=== PATIENT | male | born 1945 | race Caucasian/White ===

== ENCOUNTER 2020-09-21 19:24 | Emergency (ER) | payer BC, SELFPAY ==
--- NOTE | ~2020-09-21 | XR_ITS ---
XR wrist LT 2V DATE: 09/21/2020 19:51 INDICATION: Swelling and erythema of left wrist for one day. No injury. TECHNIQUE: AP and lateral views COMPARISON: None FINDINGS: There is joint space narrowing and spurring at the triscaphe joint consistent with osteoart hritic arthritis. There is mild osteophyte is at the first carpometacarpal joint. Minimal chondrocalcinosis of the wrist. No fracture or dislocation, periosteal reaction or bone destruction. IMPRESSION: Osteoarthritis Minimal chondrocalcinosis Reviewed, dictated and finalized at location A. [employer] EMPLOYEE
--- NOTE | 2020-09-21 19:27 | ED.GENADULT ---
HPI - General Adult General Chief complaint: Extremity Injury, Upper Stated complaint: sweling left arm Time Seen by Provider: 09/21/20 19:27 Source: patient Mode of arrival: ambulatory Limitations: no limitations History of Present Illness HPI narrative: 74-year-old male patient presents to the [facility] with complaints of left wrist pain that radiates to the elbow. Patient states that he has not had an injury to this that he is aware of. Patient states the pain did wake him up out of his sleep last night and he did take an Aleve this morning as well as put some Aspercreme on it this evening. Patient states that he thought it could be possibly some arthritis but states it is slightly swollen a little warm to the touch. Denies any history of carpal tunnel. 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 Related Data Home Medications Medication Instructions Recorded Confirmed aspirin 09/21/20 coenzyme Q10 [CoQ-10] 30 mg PO DAILY 09/21/20 09/21/20 famotidine 09/21/20 finasteride mg 09/21/20 fluticasone propionate [Flonase] 1 spray INTRANASAL BID 09/21/20 09/21/20 niacin [Niaspan Extended-Release] mg PO 09/21/20 psyllium husk [Metamucil] g PO 09/21/20 rosuvastatin mg 09/21/20 terazosin mg 09/21/20 Allergies Allergy/AdvReac Type Severity Reaction Status Date / Time No Known Allergies Allergy Unverified 12/23/16 15:05 Review of Systems Review of Systems: Narrative: CONSTITUTIONAL: Denies fever, chills, or sweats. EYES: Denies visual changes, redness, or discharge. ENT: Denies rhinorrhea, congestion, sore throat, or otalgia. CARDIOVASCULAR: Denies chest pain, palpitations, or edema. RESPIRATORY: Denies cough or dyspnea. GASTROINTESTINAL: Denies abdominal pain, nausea, vomiting, or diarrhea. GENITOURINARY: Denies dysuria or hematuria. SKIN: Denies rash or itching. MUSCULOSKELETAL: Denies back pain, joint pain, or myalgia. Positive left wrist pain NEUROLOGIC: Denies headache, numbness, or weakness. PSYCHIATRIC: Denies anxiety or depression. [facility] Past Medical History Medical History (Updated 09/21/20 @ 20:00 by THEO Schmid) Arthritis Hip and shoulder Colon polyps Enlarged prostate Hypercholesterolemia Ulcer Surgical History Surgical History (Updated 09/21/20 @ 19:28 by THEO Schmid) H/O inguinal hernia repair Hx of cholecystectomy Family History Family History Sibling Hypertension Patient's brother is in good health Father Family history of heart disease in male family member before age 55 No family history of diabetes mellitus Mother No family history of hypertension Social History Social History Smoking status: Never smoker Alcohol intake: never Comments At the time of my signature I agree with nursing past medical history, surgical, social, and family history. There is no relevant family history pertinent to the presenting complaint. Exam Narrative: Exam Narrative: GENERAL: Well-appearing, well-nourished, and in no acute distress. HEAD: Normocephalic, atraumatic. EYES: PERRLA and EOMI. ENT: Nares clear, no rhinorrhea or epistaxis. Mucous membranes moist. NECK: Supple. No lymphadenopathy CHEST: Clear to auscultation. No respiratory distress. HEART: Regular rate and rhythm. No murmur heard. Normal peripheral pulses. ABDOMEN: Soft, nontender, nondistended, normal active bowel sounds. EXTREMITIES: The L wrist is without obvious asymmetry or deformity when compared to the R wrist. No surface trauma, open wounds, or obvious deformity. Patient does have slight swelling noted to the left wrist as compared to the right wrist. Very slight warmth noted on palpation. No overlying erythema. No bony crepitus or focal area of TTP. No scaphoid fullness or tenderness to direct palpation or axial load. Norm
[2020-09-21 19:41] VITALS: BP 165/89; PULSE 96; RESP 16; TEMP 36.6; O2SAT 99
== END 2020-09-21 20:07 | disposition home or self-care (01) ==
PROVIDERS: Emergency Provider Nurse Practitioner Family; PCP Physician Assistant
DX: M19.032 Primary osteoarthritis, left wrist (principal); N40.0 Benign prostatic hyperplasia without lower urinary tract symptoms; E78.00 Pure hypercholesterolemia, unspecified; M16.10 Unilateral primary osteoarthritis, unspecified hip; M19.019 Primary osteoarthritis, unspecified shoulder
CPT/HCPCS: 73100; 99213; G0463

== ENCOUNTER 2020-10-22 18:40 | Emergency (ER) | payer BC, SELFPAY ==
--- NOTE | ~2020-10-22 | XR_ITS ---
EXAMINATION: XR chest 2V DATE: 10/22/2020 19:44 INDICATION: Shortness of breath TECHNIQUE: AP and lateral views of the chest are obtained. COMPARISON: 08/30/2004 FINDINGS: The lungs are free of acute opacities. There is no pleural effusion or pneumothorax. The ca rdiomediastinal silhouette is normal. There is mild thoracic spondylosis. IMPRESSION: 1. No acute cardiopulmonary abnormality. Reviewed, dictated and finalized at location A. T RAIL TRANSIT OPERATOR
[2020-10-22 18:45] VITALS: BP 107/60; PULSE 174; RESP 18; TEMP 36.8; O2SAT 97
[2020-10-22] MEDS: dilTIAZem HCl INJ 25 MG/5 ML VIAL (18:54)
[2020-10-22 19:16] VITALS: BP 113/71; PULSE 116; RESP 16; TEMP 36.5; O2SAT 98
--- NOTE | 2020-10-22 19:24 | ECG_ITS ---
Measurements Intervals [place] Rate: 159 P: TN: 0 QRS: -43 QRSD: 113 T: 90 QT: 279 QTc: 454 Interpretive Statements ATRIAL FIBRILLATION WITH RAPID VENTRICULAR RESPONSE LEFT AXIS DEVIATION INCOMPLETE LEFT BUNDLE BRANCH BLOCK BORDERLINE R WAVE PROGRESSION, ANTERIOR LEADS NONSPECIFIC ST & T-WAVE ABNORMALITY- HIGH LATERAL LEADS ABNORMAL ECG Electronically Signed On 10-22-2020 19:57:47 PROGRAM ASSISTANT by Terence Santos D.O.
--- NOTE | 2020-10-22 19:34 | ED.ARRPALP ---
HPI - Arrhythmia/Palpitations General Chief Complaint: Arrhythmia/Palpitations Stated Complaint: afib with rvr Time Seen by Provider: 10/22/20 18:42 History of Present Illness HPI narrative: Patient is a 74-year-old male who presents ER with rapid heart rate. Patient reports he was giving his dog's water at 5:30 PM when he felt his heart start racing. Is associated with some weakness and some chest tightness. No overt chest pain however chest tightness improved from an 8/10 to a 4/10 after receiving 1 dose of nitro by EMS. No previous history of A. fib or coronary disease. Symptoms persist. No alleviating factors for the racing of the heart. Reports he may be dehydrated from not having much to eat or drink today. He had been working outside getting ready to garden for the spring. Related Data Home Medications Medication Instructions Recorded Confirmed aspirin 09/21/20 coenzyme Q10 [CoQ-10] 30 mg PO DAILY 09/21/20 09/21/20 famotidine 09/21/20 finasteride mg 09/21/20 fluticasone propionate [Flonase] 1 spray INTRANASAL BID 09/21/20 09/21/20 niacin [Niaspan Extended-Release] mg PO 09/21/20 psyllium husk [Metamucil] g PO 09/21/20 rosuvastatin mg 09/21/20 terazosin mg 09/21/20 Allergies Allergy/AdvReac Type Severity Reaction Status Date / Time No Known Allergies Allergy Unverified 12/23/16 15:05 Review of Systems Review of Systems: All systems reviewed & are unremarkable except as noted in HPI and below Constitutional: Constitutional: Denies chills, Denies fever(s) and Reports weakness Cardiovascular: Cardiovascular: Reports chest pain, Reports rapid heart rate and Denies radiating jaw, neck or arm pain Respiratory: Respiratory: Denies cough, Denies dyspnea and Denies wheezing Gastrointestinal: Gastrointestinal: Denies abdominal pain, Denies nausea and Denies vomiting PMF Past Medical History Medical History (Updated 10/22/20 @ 21:23 by Leland Bess MD) Arthritis Hip and shoulder Colon polyps Enlarged prostate Hypercholesterolemia Ulcer Surgical History Surgical History (Updated 09/21/20 @ 19:28 by THEO Schmid) H/O inguinal hernia repair Hx of cholecystectomy Family History Family History Sibling Hypertension Patient's brother is in good health Father Family history of heart disease in male family member before age 55 No family history of diabetes mellitus Mother No family history of hypertension Social History Social History Smoking status: Never smoker Alcohol intake: never Exam Narrative: Exam Narrative: GENERAL: Well-appearing, well-nourished, and in no acute distress. HEAD: Normocephalic, atraumatic. ENT: Mucous membranes moist. CHEST: Clear to auscultation. No respiratory distress. HEART: Irregular regular rate and rhythm that is tachycardic. Normal peripheral pulses. ABDOMEN: Soft, nontender, nondistended. EXTREMITIES: Normal range of motion. No edema. SKIN: Warm, dry, no rash. Course Course Emergency Course: Patient converted to normal sinus rhythm after receiving 10 mg of diltiazem IV. Patient informed of results. Discussed case with cardiology and Dr. Enamorado. Recommends patient be placed on metoprolol 25 mg twice daily beginning tomorrow morning. Also recommends full dose aspirin. Patient ports he has history of gastric ulceration so he will also be placed on a PPI to replace his famotidine. Vital Signs Vital signs: Vital Signs Temperature 98.2 F 10/22/20 18:45 Pulse Rate 174 H 10/22/20 18:45 Respiratory Rate 18 10/22/20 18:45 Blood Pressure 107/60 10/22/20 18:45 Pulse Oximetry 97 10/22/20 18:45 Temperature 97.7 F 10/22/20 19:16 Pulse Rate 64 10/22/20 21:17 Respiratory Rate 14 10/22/20 21:17 Blood Pressure 124/64 10/22/20 21:17 Pulse Oximetry 98 10/22/20 21:17 MDM - Arrhythmia/Palpita
--- NOTE | 2020-10-22 19:44 | ECG_ITS ---
Measurements Intervals [place] Rate: 82 P: 16 MO: 140 QRS: 104 QRSD: 121 T: 33 QT: 366 QTc: 430 Interpretive Statements SINUS RHYTHM RIGHT AXIS DEVIATION INTRAVENTRICULAR CONDUCTION DELAY DELAYED PRECORDIAL R/S TRANSITION BORDERLINE ECG Electronically Signed On 10-22-2020 19:59:14 ACCOUNTING SPECIALIST by Terence Santos D.O.
[2020-10-22 20:00] VITALS: BP 115/56; PULSE 77
[2020-10-22] MEDS: SODIUM CHLORIDE 0.9% IV 1,000 ML 999 ML IV CONT (20:00)
[2020-10-22 20:04] LABS: Basophils Percent Auto 0.5 % (0.2-1.2); Eosinophils Percent Auto 0.4 % (0-4.4); Hemoglobin 13.8 g/dL (14.0-18.0); Immature Granulocyte Absolute 0.03 K/mm3 (0.00-0.031); Immature Granulocyte Percent A 0.4 % (0-0.5); Lymphocytes Absolute Auto 1.94 K/mm3 (0.9-3.2); Lymphocytes Percent Auto 24.9 % (18.3-44.2); Mean Corpuscular HGB Conc 34.5 g/dl (32-36); Mean Corpuscular Hemoglobin 31.6 pg (26-34); Mean Corpuscular Volume 91.5 fl (80-100); Mean Platelet Volume 9.3 fl (7.4-10.4); Monocytes Absolute Auto 0.8 K/mm3 (0.1-0.6); Monocytes Percent Auto 10.4 % (2.6-8.5); Neutrophils Percent Auto 63.4 % (45.5-73.1); Platelet Count Result 170 k/mm3 (150-375); Red Blood Count 4.37 M/mm3 (4.6-6.20); Red Cell Distribution Width 13.2 % (11.5-14.5); White Blood Count 7.8 K/mm3 (4.5-10.0)
[2020-10-22 20:11] VITALS: BP 122/80; PULSE 72; RESP 18; O2SAT 100
[2020-10-22 20:14] LABS: Partial Thromboplastin Time 26.3 SECONDS (22.3-36.8); Prothrombin Time 13.6 Seconds (11.1-14.7)
[2020-10-22 20:15] LABS: Anion Gap 2 mmol/L (8-16); Blood Urea Nitrogen 17 mg/dL (9-20); Calcium 9.1 mg/dL (8.4-10.2); Carbon Dioxide 32 mmol/L (22-30); Chloride 105 mmol/L (98-107); Estimated Glomerular Filt Rate > 60; Glucose 97 mg/dL (75-110); Potassium 3.8 mmol/L (3.4-5.0); Sodium 139 mmol/L (137-145)
[2020-10-22 20:27] LABS: Troponin I < 0.012 ng/mL (0.000-0.034)
[2020-10-22 21:17] VITALS: BP 124/64; PULSE 64; RESP 14; O2SAT 98
[2020-10-22 21:30] VITALS: BP 133/73; PULSE 59; RESP 16; O2SAT 99
== END 2020-10-22 21:30 | disposition home or self-care (01) ==
PROVIDERS: Emergency Provider Emergency Medicine; PCP Physician Assistant
DX: I48.0 Paroxysmal atrial fibrillation (principal); M16.10 Unilateral primary osteoarthritis, unspecified hip; M19.019 Primary osteoarthritis, unspecified shoulder; Z86.010 Personal history of colon polyps; E78.00 Pure hypercholesterolemia, unspecified; N40.0 Benign prostatic hyperplasia without lower urinary tract symptoms; Z79.82 Long term (current) use of aspirin; I48.91 Unspecified atrial fibrillation; I44.7 Left bundle-branch block, unspecified; R94.31 Abnormal electrocardiogram [ECG] [EKG]; I45.9 Conduction disorder, unspecified
CPT/HCPCS: 36415; 71046; 80048; 84484; 85025; 85610; 85730; 93005; 96361; 96374; 99284; J7030

== ENCOUNTER 2022-06-01 00:15 | Day surgery (SDC) | payer OTHER, SELFPAY ==
[2022-05-21 11:02] VITALS: BMI 29.2
[2022-06-01 09:37] VITALS: BP 157/58; PULSE 63; RESP 18; TEMP 36.1; O2SAT 96; BMI 28.6
[2022-06-01] MEDS: LACTATED RINGERS 1,000 ML 150 ML IV CONT (09:57)
--- NOTE | 2022-06-01 10:14 | PM.HPGS ---
History of Present Illness History of Present Illness Consent: Risks, benefits, and alternatives have been discussed and questions answered. Patient agrees to proceed with procedure. Chief complaint: hx colon polyps Narrative: Pedro Garcia is a 76 year old male Presents for screening colonoscopy. Patient's current weight appetite and bowel movements are normal. Patient denies abdominal pain. he has had no bleeding. Family history noncontributory. Patient has a prior history of colon polyps in 2017. He presents today for screening colonoscopy. Review of Systems Review of Systems: Review of systems noncontributory. [facility] Past Medical History Medical History (Updated 06/01/22 @ 10:16 by Inocente Ornelas MD) Arthritis Hip and shoulder Colon polyps Enlarged prostate Hypercholesterolemia Ulcer Surgical History Surgical History (Updated 09/21/20 @ 19:28 by THEO Schmid) H/O inguinal hernia repair Hx of cholecystectomy Family History Family History Sibling Hypertension Patient's brother is in good health Father Family history of heart disease in male family member before age 55 No family history of diabetes mellitus Mother No family history of hypertension Social History Social History Smoking status: Former smoker Tobacco type: cigarettes Alcohol intake: never Substance use type: does not use Living arrangements: with family Spiritual care concerns: No Meds Home Medications and Allergies Home Medications Medication Instructions Recorded Confirmed Type acetaminophen 325 mg tablet 650 mg PO Q6H PRN pain 10 days #40 09/21/20 06/01/22 Rx tabs coenzyme Q10 30 mg capsule (CoQ-10) 30 mg PO DAILY 09/21/20 06/01/22 History famotidine 10 mg tablet 10 mg PO DAILY 09/21/20 06/01/22 History finasteride 5 mg tablet 5 mg PO DAILY 09/21/20 06/01/22 History fluticasone propionate 50 1 spray intranasal BID PRN Allergy 09/21/20 06/01/22 History mcg/actuation nasal Symptoms spray,suspension psyllium husk 0.4 gram capsule 0.4 g PO DAILY 09/21/20 06/01/22 History (Metamucil) terazosin 2 mg capsule 2 mg PO DAILY 09/21/20 06/01/22 History metoprolol tartrate 25 mg tablet 25 mg PO BID #60 tabs 10/22/20 06/01/22 Rx omeprazole 20 mg tablet,delayed 20 mg PO DAILY 05/21/22 06/01/22 History release rivaroxaban 20 mg tablet (Xarelto) 20 mg PO DAILY 05/21/22 06/01/22 History rosuvastatin 20 mg tablet 20 mg PO DAILY 05/21/22 06/01/22 History Allergies Allergy/AdvReac Type Severity Reaction Status Date / Time No Known Allergies Allergy Verified 06/01/22 09:44 Vital Signs Vital Signs - 24 hr 06/01/22 09:37 Temperature 96.9 F L Pulse Rate 63 Respiratory Rate 18 Blood Pressure 157/58 H Pulse Oximetry 96 Oxygen Delivery Room Air Exam Narrative: Physical exam reveals patient to be alert. Vital signs stable. HEENT exam is unremarkable. Patient is anicteric. Lungs are clear to auscultation and percussion. Heart is without murmur or extra sounds. Abdominal exam bowel sounds are present soft nontender with no organomegaly. Digital external rectal exam is normal. Assessment and Plan Assessment and plan (1) History of colon polyps: Code(s): Z86.010 - Personal history of colonic polyps Status: Acute Assessment and Plan: Patient has a history of colon polyps removed from the colon 2016. Plan for surveillance colonoscopy today. Further recommendations will be given after endoscopy.
--- NOTE | 2022-06-01 10:33 | WPDANESEPPF ---
Anes - Initial Pre Proc Eval Procedure: Operation Date: 06/01/22 10:45 Proposed Procedures p Screening Colonoscopy - Inocente Ornelas MD Date/Time: 06/01/22 10:33 Surgeon: Inocente Ornelas MD Pre Op Diagnosis: hx colon polyps Patient Data Age: 76 Gender: M Height: 1.83 m Weight: 95.9 kg Last Vital Signs Temp 96.9 F L 06/01/22 09:37 Pulse 63 06/01/22 09:37 Resp 18 06/01/22 09:37 BP 157/58 H 06/01/22 09:37 Pulse Ox 96 06/01/22 09:37 O2 Del Method Room Air 06/01/22 09:37 Allergies Allergy/AdvReac Type Severity Reaction Status Date / Time No Known Allergies Allergy Verified 06/01/22 09:44 Home Medications Medication Instructions Recorded Confirmed Type acetaminophen 325 mg tablet 650 mg PO Q6H PRN pain 10 days #40 09/21/20 06/01/22 Rx tabs coenzyme Q10 30 mg capsule (CoQ-10) 30 mg PO DAILY 09/21/20 06/01/22 History famotidine 10 mg tablet 10 mg PO DAILY 09/21/20 06/01/22 History finasteride 5 mg tablet 5 mg PO DAILY 09/21/20 06/01/22 History fluticasone propionate 50 1 spray intranasal BID PRN Allergy 09/21/20 06/01/22 History mcg/actuation nasal Symptoms spray,suspension psyllium husk 0.4 gram capsule 0.4 g PO DAILY 09/21/20 06/01/22 History (Metamucil) terazosin 2 mg capsule 2 mg PO DAILY 09/21/20 06/01/22 History metoprolol tartrate 25 mg tablet 25 mg PO BID #60 tabs 10/22/20 06/01/22 Rx omeprazole 20 mg tablet,delayed 20 mg PO DAILY 05/21/22 06/01/22 History release rivaroxaban 20 mg tablet (Xarelto) 20 mg PO DAILY 05/21/22 06/01/22 History rosuvastatin 20 mg tablet 20 mg PO DAILY 05/21/22 06/01/22 History Patient hx anesthesia problems: none Family hx anesthesia problems: none Results Review: All pre-operative results and documents have been reviewed as part of the pre-operative evaluation. [facility] Past Medical History Medical History (Updated 06/01/22 @ 10:16 by Inocente Ornelas MD) Arthritis Hip and shoulder Colon polyps Enlarged prostate Hypercholesterolemia Ulcer Surgical History Surgical History (Updated 09/21/20 @ 19:28 by THEO Schmid) H/O inguinal hernia repair Hx of cholecystectomy Family History Family History Sibling Hypertension Patient's brother is in good health Father Family history of heart disease in male family member before age 55 No family history of diabetes mellitus Mother No family history of hypertension Social History Social History Smoking status: Former smoker Tobacco type: cigarettes Alcohol intake: never Substance use type: does not use Living arrangements: with family Spiritual care concerns: No Anes - Eval Final PreProcedure Day of Procedure 06/01/22 10:33 Patient weight: normal Heart: irregular rhythm Lungs: clear to auscultation Airway: Mallampati scale class II Neurological: alert and oriented Last oral intake: >/= 8 hours ASA classification: III Emergent: no Anesthetic plan: proceed Anesthesia type and monitoring: general GIVS and standard monitoring Results Review: All pre-operative results and documents have been reviewed as part of the pre-operative evaluation. Informed Consent: The patient's anesthetic plan and its attendant risks and benefits were discussed with the patient/family/POA. Questions were solicited and answers provided to the satisfaction of the patient/family/POA.
[2022-06-01] MEDS: SIMETHICONE ORAL SUSPENSION 20 MG/0.3 ML 30 ML BOTTLE 0.6 ML IRRIGATION (11:20)
[2022-06-01 11:46] VITALS: BP 131/71; PULSE 63; RESP 24; O2SAT 94
[2022-06-01 11:56] VITALS: BP 129/68; PULSE 55; RESP 16; O2SAT 97
[2022-06-01 12:06] VITALS: BP 130/65; PULSE 52; RESP 16; O2SAT 97
== END 2022-06-01 12:20 | disposition home or self-care (01) ==
PROVIDERS: PCP Physician Assistant; Visit Provider Internal Medicine Gastroenterology
PROC: 0DJD8ZZ Inspection of Lower Intestinal Tract, Via Natural or Artificial Opening Endoscopic (ICD-10-PCS; CPT 45378; principal; 2022-06-01 10:45)
DX: Z12.11 Encounter for screening for malignant neoplasm of colon (principal); D12.2 Benign neoplasm of ascending colon; D37.4 Neoplasm of uncertain behavior of colon; K63.5 Polyp of colon; Z79.01 Long term (current) use of anticoagulants; Z79.899 Other long term (current) drug therapy; M19.90 Unspecified osteoarthritis, unspecified site; N40.0 Benign prostatic hyperplasia without lower urinary tract symptoms; E78.00 Pure hypercholesterolemia, unspecified; Z90.49 Acquired absence of other specified parts of digestive tract; Z87.891 Personal history of nicotine dependence
CPT/HCPCS: 45385; 45381; 88305; J2001; J2704; J7120

== ENCOUNTER 2022-10-01 00:37 | Day surgery (SDC) | payer OTHER, SELFPAY ==
[2022-09-21 09:54] VITALS: BMI 28.6
[2022-10-01 08:39] VITALS: BP 123/85; PULSE 50; RESP 18; TEMP 36.6; O2SAT 97
[2022-10-01] MEDS: LACTATED RINGERS 1,000 ML 150 ML IV CONT (08:45)
--- NOTE | 2022-10-01 08:50 | WPDANESEPPF ---
Anes - Initial Pre Proc Eval Procedure: Operation Date: 10/01/22 09:30 Proposed Procedures p Screening Colonoscopy - Inocente Ornelas MD Date/Time: 10/01/22 08:50 Surgeon: Inocente Ornelas MD Pre Op Diagnosis: hx colon polyps Patient Data Age: 76 Gender: M Height: 1.83 m Weight: 97.9 kg Last Vital Signs Temp 36.6 C 10/01/22 08:39 Pulse 50 L 10/01/22 08:39 Resp 18 10/01/22 08:39 BP 123/85 10/01/22 08:39 Pulse Ox 97 10/01/22 08:39 O2 Del Method Room Air 10/01/22 08:39 Allergies Allergy/AdvReac Type Severity Reaction Status Date / Time No Known Allergies Allergy Verified 10/01/22 08:37 Home Medications Medication Instructions Recorded Confirmed Type acetaminophen 325 mg tablet 650 mg PO Q6H PRN pain 10 days #40 09/21/20 09/21/22 Rx tabs famotidine 10 mg tablet 20 mg PO DAILY 09/21/20 09/21/22 History finasteride 5 mg tablet 5 mg PO DAILY 09/21/20 09/21/22 History fluticasone propionate 50 1 spray intranasal BID PRN Allergy 09/21/20 09/21/22 History mcg/actuation nasal Symptoms spray,suspension terazosin 2 mg capsule 2 mg PO DAILY 09/21/20 09/21/22 History omeprazole 20 mg tablet,delayed 20 mg PO DAILY 05/21/22 09/21/22 History release rivaroxaban 20 mg tablet (Xarelto) 20 mg PO DAILY 05/21/22 09/21/22 History rosuvastatin 20 mg tablet 20 mg PO DAILY 05/21/22 09/21/22 History Adults Multivitamin 1 tab-cap PO DAILY 09/21/22 09/21/22 History Calcium 600-D3 Plus (mag-zinc) 3 cap PO DAILY 09/21/22 09/21/22 History cholecalciferol (vitamin D3) 50 100 mcg PO DAILY 09/21/22 09/21/22 History mcg (2,000 unit) tablet (Vitamin D3) coQ10 (ubiquinol) 100 mg capsule 100 mg PO DAILY 09/21/22 09/21/22 History loratadine 10 mg tablet 10 mg PO DAILY 09/21/22 09/21/22 History metoprolol succinate 25 mg 25 mg PO DAILY 09/21/22 09/21/22 History tablet,extended release 24 hr psyllium 1 tbsp PO DAILY 09/21/22 09/21/22 History Patient hx anesthesia problems: none Family hx anesthesia problems: none Results Review: All pre-operative results and documents have been reviewed as part of the pre-operative evaluation. PMFSH Past Medical History Medical History Afib Arthritis Hip and shoulder Colon polyps Enlarged prostate Hypercholesterolemia Ulcer Surgical History Surgical History H/O inguinal hernia repair Hx of cholecystectomy Family History Family History Sibling Hypertension Patient's brother is in good health Father Family history of heart disease in male family member before age 55 No family history of diabetes mellitus Mother No family history of hypertension Social History Social History Smoking status: Former smoker Tobacco type: cigarettes Alcohol intake: never Substance use: never Substance use type: does not use Living arrangements: with family Spiritual care concerns: No Anes - Eval Final PreProcedure Day of Procedure 10/01/22 08:50 Patient weight: overweight Heart: regular rate and rhythm Lungs: decreased breath sounds Airway: Mallampati scale class II Neurological: alert and oriented Last oral intake: >/= 8 hours ASA classification: III Emergent: no Anesthetic plan: proceed Anesthesia type and monitoring: general GIVS and standard monitoring Results Review: All pre-operative results and documents have been reviewed as part of the pre-operative evaluation. Informed Consent: The patient's anesthetic plan and its attendant risks and benefits were discussed with the patient/family/POA. Questions were solicited and answers provided to the satisfaction of the patient/family/POA.
--- NOTE | 2022-10-01 09:21 | PM.HPGS ---
History of Present Illness History of Present Illness Consent: Risks, benefits, and alternatives have been discussed and questions answered. Patient agrees to proceed with procedure. Chief complaint: hx colon polyps Narrative: Pedro Garcia is a 76 year old male Presents for screening follow-up colonoscopy. Patient was found to have a rather large ascending colon polyp in May of 2022. Onlyl partial polypectomy was able to be accomplished. Patient returns today for follow-up colonoscopy. He states his current weight appetite bowel movements are normal. Patient denies abdominal pain. He has had no bleeding. Patient has had polyps on previous colonoscopies as well. Review of Systems Review of Systems: Review of systems is noncontributory. PMFSH Past Medical History Medical History Afib Arthritis Hip and shoulder Colon polyps Enlarged prostate Hypercholesterolemia Ulcer Surgical History Surgical History H/O inguinal hernia repair Hx of cholecystectomy Family History Family History Sibling Hypertension Patient's brother is in good health Father Family history of heart disease in male family member before age 55 No family history of diabetes mellitus Mother No family history of hypertension Social History Social History Smoking status: Former smoker Tobacco type: cigarettes Alcohol intake: never Substance use: never Substance use type: does not use Living arrangements: with family Spiritual care concerns: No Meds Home Medications and Allergies Home Medications Medication Instructions Recorded Confirmed Type acetaminophen 325 mg tablet 650 mg PO Q6H PRN pain 10 days #40 09/21/20 09/21/22 Rx tabs famotidine 10 mg tablet 20 mg PO DAILY 09/21/20 09/21/22 History finasteride 5 mg tablet 5 mg PO DAILY 09/21/20 09/21/22 History fluticasone propionate 50 1 spray intranasal BID PRN Allergy 09/21/20 09/21/22 History mcg/actuation nasal Symptoms spray,suspension terazosin 2 mg capsule 2 mg PO DAILY 09/21/20 09/21/22 History omeprazole 20 mg tablet,delayed 20 mg PO DAILY 05/21/22 09/21/22 History release rivaroxaban 20 mg tablet (Xarelto) 20 mg PO DAILY 05/21/22 09/21/22 History rosuvastatin 20 mg tablet 20 mg PO DAILY 05/21/22 09/21/22 History Adults Multivitamin 1 tab-cap PO DAILY 09/21/22 09/21/22 History Calcium 600-D3 Plus (mag-zinc) 3 cap PO DAILY 09/21/22 09/21/22 History cholecalciferol (vitamin D3) 50 100 mcg PO DAILY 09/21/22 09/21/22 History mcg (2,000 unit) tablet (Vitamin D3) coQ10 (ubiquinol) 100 mg capsule 100 mg PO DAILY 09/21/22 09/21/22 History loratadine 10 mg tablet 10 mg PO DAILY 09/21/22 09/21/22 History metoprolol succinate 25 mg 25 mg PO DAILY 09/21/22 09/21/22 History tablet,extended release 24 hr psyllium 1 tbsp PO DAILY 09/21/22 09/21/22 History Allergies Allergy/AdvReac Type Severity Reaction Status Date / Time No Known Allergies Allergy Verified 10/01/22 08:37 Vital Signs Vital Signs - 24 hr 10/01/22 08:39 Temperature 97.8 F Pulse Rate 50 L Respiratory Rate 18 Blood Pressure 123/85 Pulse Oximetry 97 Oxygen Delivery Room Air Exam Narrative: Physical exam reveals patient be alert. Vital signs stable. HEENT exam is unremarkable. Patient is anicteric. Lungs are clear to auscultation and percussion. Heart is without murmur or extra sounds. Abdomen bowel sounds present soft nontender with no organomegaly. Digital external rectal exam is normal. Assessment and Plan Assessment and plan (1) History of colon polyps: Code(s): Z86.010 - Personal history of colonic polyps Status: Acute Assessment and Plan: Patient has a history of colon polyps on previous colo
[2022-10-01 10:31] VITALS: BP 131/64; PULSE 55; RESP 15; O2SAT 95
[2022-10-01 10:41] VITALS: BP 132/63; PULSE 52; RESP 17; O2SAT 99
[2022-10-01 10:51] VITALS: BP 127/65; PULSE 49; RESP 15; O2SAT 97
== END 2022-10-01 11:06 | disposition home or self-care (01) ==
PROVIDERS: PCP Physician Assistant; Visit Provider Internal Medicine Gastroenterology
PROC: 0DJD8ZZ Inspection of Lower Intestinal Tract, Via Natural or Artificial Opening Endoscopic (ICD-10-PCS; CPT 45378; principal; 2022-10-01 09:30)
DX: Z12.11 Encounter for screening for malignant neoplasm of colon (principal); D12.2 Benign neoplasm of ascending colon; Z79.01 Long term (current) use of anticoagulants; I48.91 Unspecified atrial fibrillation; N40.0 Benign prostatic hyperplasia without lower urinary tract symptoms; E78.00 Pure hypercholesterolemia, unspecified; Z87.891 Personal history of nicotine dependence
CPT/HCPCS: 45385; 88305; J2704; J7120

== ENCOUNTER 2023-05-26 15:11 | Outpatient (CLI) | payer OTHER, SELFPAY ==
--- NOTE | ~2023-05-26 | XR_ITS ---
XR wrist LT min 3V DATE: 05/26/2023 15:32 INDICATION: Left wrist swelling TECHNIQUE: 4 views COMPARISON: 09/21/2020 left wrist FINDINGS: There is osteoarthritis at the triscaphe and first carpometacarpal joints in addition to th e third metacarpophalangeal joint. No fracture or dislocation, periosteal reaction or bone destruction. Minimal chondrocalcinosis at the left wrist. IMPRESSION: Polyarticular osteoarthritis Minimal chondrocalcinosis Reviewed, dictated and finalized at location L.
== END 2023-05-26 15:12 | disposition home or self-care (01) ==
PROVIDERS: PCP Physician Assistant; Visit Provider Physician Assistant
DX: M25.432 Effusion, left wrist (principal); M19.032 Primary osteoarthritis, left wrist
CPT/HCPCS: 73110

== ENCOUNTER 2023-06-10 00:34 | Day surgery (SDC) | payer OTHER, SELFPAY ==
[2023-06-03 11:58] VITALS: BMI 28.3
[2023-06-10 10:04] VITALS: BP 148/63; PULSE 84; RESP 20; TEMP 37; O2SAT 99; BMI 27.5
[2023-06-10] MEDS: LACTATED RINGERS 1,000 ML 150 ML IV CONT (10:17)
--- NOTE | 2023-06-10 10:38 | WPDANESEPPF ---
Anes - Initial Pre Proc Eval Procedure: Operation Date: 06/10/23 11:00 Proposed Procedures p Colonoscopy - Inocente Ornelas MD Date/Time: 06/10/23 10:38 Surgeon: Inocente Ornelas MD Pre Op Diagnosis: hx of colon polyps Patient Data Age: 77 Gender: M Height: 1.85 m Weight: 94.7 kg Last Vital Signs Temp 98.6 F 06/10/23 10:04 Pulse 84 06/10/23 10:04 Resp 20 06/10/23 10:04 BP 148/63 H 06/10/23 10:04 Pulse Ox 99 06/10/23 10:04 O2 Del Method Room Air 06/10/23 10:04 Allergies Allergy/AdvReac Type Severity Reaction Status Date / Time No Known Allergies Allergy Verified 06/10/23 10:00 Home Medications Medication Instructions Recorded Confirmed Type acetaminophen 325 mg tablet 650 mg PO Q6H PRN pain 10 days #40 09/21/20 06/03/23 Rx tabs finasteride 5 mg tablet 5 mg PO HS 09/21/20 06/03/23 History fluticasone propionate 50 1 spray intranasal DAILY PRN 09/21/20 06/03/23 History mcg/actuation nasal Allergy Symptoms spray,suspension terazosin 2 mg capsule 2 mg PO DAILY 09/21/20 06/03/23 History omeprazole 20 mg tablet,delayed 20 mg PO HS 05/21/22 06/03/23 History release rivaroxaban 20 mg tablet (Xarelto) 20 mg PO DAILY 05/21/22 06/03/23 History rosuvastatin 20 mg tablet 20 mg PO HS 05/21/22 06/03/23 History Adults Multivitamin 1 tab-cap PO DAILY 09/21/22 06/03/23 History Calcium 600-D3 Plus (mag-zinc) 1 cap PO QAM 09/21/22 06/03/23 History cholecalciferol (vitamin D3) 50 100 mcg PO DAILY 09/21/22 06/03/23 History mcg (2,000 unit) tablet (Vitamin D3) coQ10 (ubiquinol) 100 mg capsule 100 mg PO DAILY 09/21/22 06/03/23 History loratadine 10 mg tablet 10 mg PO HS 09/21/22 06/03/23 History metoprolol succinate 25 mg 25 mg PO DAILY 09/21/22 06/03/23 History tablet,extended release 24 hr psyllium 1 tbsp PO DAILY 09/21/22 06/03/23 History colchicine (gout) 0.6 mg tablet 0.6 mg PO BID 06/03/23 06/03/23 History cyclobenzaprine 5 mg tablet 5 mg PO HS PRN Muscle Spasm 06/03/23 06/03/23 History famotidine 20 mg tablet 20 mg PO DAILY 06/03/23 06/03/23 History Patient hx anesthesia problems: none Family hx anesthesia problems: none Results Review: All pre-operative results and documents have been reviewed as part of the pre-operative evaluation. [facility] Past Medical History Medical History Afib Arthritis Hip and shoulder Colon polyps Enlarged prostate Hypercholesterolemia Ulcer Surgical History Surgical History H/O inguinal hernia repair Hx of cholecystectomy Family History Family History Sibling Hypertension Patient's brother is in good health Father Family history of heart disease in male family member before age 55 No family history of diabetes mellitus Mother No family history of hypertension Social History Social History Smoking packs per day: 1 Smoking cigarettes per day: 20.0 Years smoked: 16 Smoking pack-years: 16.00 Smoking status: Former smoker Tobacco type: cigarettes Alcohol intake: former Substance use: never Substance use type: does not use Living arrangements: with family Spiritual care concerns: No Anes - Eval Final PreProcedure Day of Procedure 06/10/23 10:38 Patient weight: normal Heart: regular rate and rhythm Lungs: clear to auscultation Airway: Mallampati scale class II Neurological: alert and oriented Last oral intake: >/= 8 hours ASA classification: III Emergent: no Anesthetic plan: proceed Anesthesia type and monitoring: general GIVS and standard monitoring Results Review: All pre-operative results and documents have been reviewed as part of the pre-operative evaluation. Informed Consent: The patient's anesthetic plan and its attendant risks and benefits were discuss
--- NOTE | 2023-06-10 10:46 | PM.HPGS ---
History of Present Illness History of Present Illness Consent: Risks, benefits, and alternatives have been discussed and questions answered. Patient agrees to proceed with procedure. Chief complaint: hx of colon polyps Narrative: Pedro Garcia is a 77 year old male Presents for colonoscopy. Patient has a history of a rather large ascending colon polyp. Patient presents today for follow-up colonoscopy to ensure complete excision of this polyp. Most recent colonoscopy in September of 2022 revealed residual ascending colon polyp that was excised. Required piecemeal extraction at that time. Histology of retrieve portion was benign. Patient presents today for follow-up exam. Current weight appetite bowel movements are normal. Patient denies abdominal pain. He has had no bleeding. Family history noncontributory. Patient does have a history of gout and has had a flare-up in his left hand. Review of Systems Review of Systems: Review of Systems is noncontributory. [facility] Past Medical History Medical History Afib Arthritis Hip and shoulder Colon polyps Enlarged prostate Hypercholesterolemia Ulcer Surgical History Surgical History H/O inguinal hernia repair Hx of cholecystectomy Family History Family History Sibling Hypertension Patient's brother is in good health Father Family history of heart disease in male family member before age 55 No family history of diabetes mellitus Mother No family history of hypertension Social History Social History Smoking packs per day: 1 Smoking cigarettes per day: 20.0 Years smoked: 16 Smoking pack-years: 16.00 Smoking status: Former smoker Tobacco type: cigarettes Alcohol intake: former Substance use: never Substance use type: does not use Living arrangements: with family Spiritual care concerns: No Meds Home Medications and Allergies Home Medications Medication Instructions Recorded Confirmed Type acetaminophen 325 mg tablet 650 mg PO Q6H PRN pain 10 days #40 09/21/20 06/03/23 Rx tabs finasteride 5 mg tablet 5 mg PO HS 09/21/20 06/03/23 History fluticasone propionate 50 1 spray intranasal DAILY PRN 09/21/20 06/03/23 History mcg/actuation nasal Allergy Symptoms spray,suspension terazosin 2 mg capsule 2 mg PO DAILY 09/21/20 06/03/23 History omeprazole 20 mg tablet,delayed 20 mg PO HS 05/21/22 06/03/23 History release rivaroxaban 20 mg tablet (Xarelto) 20 mg PO DAILY 05/21/22 06/03/23 History rosuvastatin 20 mg tablet 20 mg PO HS 05/21/22 06/03/23 History Adults Multivitamin 1 tab-cap PO DAILY 09/21/22 06/03/23 History Calcium 600-D3 Plus (mag-zinc) 1 cap PO QAM 09/21/22 06/03/23 History cholecalciferol (vitamin D3) 50 100 mcg PO DAILY 09/21/22 06/03/23 History mcg (2,000 unit) tablet (Vitamin D3) coQ10 (ubiquinol) 100 mg capsule 100 mg PO DAILY 09/21/22 06/03/23 History loratadine 10 mg tablet 10 mg PO HS 09/21/22 06/03/23 History metoprolol succinate 25 mg 25 mg PO DAILY 09/21/22 06/03/23 History tablet,extended release 24 hr psyllium 1 tbsp PO DAILY 09/21/22 06/03/23 History colchicine (gout) 0.6 mg tablet 0.6 mg PO BID 06/03/23 06/03/23 History cyclobenzaprine 5 mg tablet 5 mg PO HS PRN Muscle Spasm 06/03/23 06/03/23 History famotidine 20 mg tablet 20 mg PO DAILY 06/03/23 06/03/23 History Allergies Allergy/AdvReac Type Severity Reaction Status Date / Time No Known Allergies Allergy Verified 06/10/23 10:00 Vital Signs Vital Signs - 24 hr 06/10/23 10:04 Temperature 98.6 F Pulse Rate 84 Respiratory Rate 20 Blood Pressure 148/63 H Pulse Oximetry 99 Oxygen Delivery Room Air Exam Narrative: Physical exam reveals patient to be alert. Vital signs stable. H
[2023-06-10 11:19] VITALS: BP 124/66; PULSE 68; RESP 17; O2SAT 100
[2023-06-10 11:29] VITALS: BP 126/60; PULSE 65; RESP 15; O2SAT 100
[2023-06-10 11:39] VITALS: BP 135/69; PULSE 62; RESP 20; O2SAT 100
== END 2023-06-10 11:53 | disposition home or self-care (01) ==
PROVIDERS: PCP Physician Assistant; Visit Provider Internal Medicine Gastroenterology
PROC: 0DJD8ZZ Inspection of Lower Intestinal Tract, Via Natural or Artificial Opening Endoscopic (ICD-10-PCS; CPT 45378; principal; 2023-06-10 11:00)
DX: Z12.11 Encounter for screening for malignant neoplasm of colon (principal); K64.8 Other hemorrhoids; Z86.010 Personal history of colon polyps; I48.91 Unspecified atrial fibrillation; E78.00 Pure hypercholesterolemia, unspecified; N40.0 Benign prostatic hyperplasia without lower urinary tract symptoms; Z79.01 Long term (current) use of anticoagulants; Z87.891 Personal history of nicotine dependence
CPT/HCPCS: G0105; J2704; J7120

== ENCOUNTER 2023-06-16 17:52 | Emergency (ER) | payer OTHER, SELFPAY ==
--- NOTE | ~2023-06-16 | CT_ITS ---
EXAMINATION: CT brain wo con INDICATION: Head injury COMPARISON: 11/22/2005 TECHNIQUE: Standard unenhanced head CT. The dose-length product (DLP) was 681.00 mGy-cm. The mA was a djusted according to patient size. Iterative reconstruction technique was employed. FINDINGS: No acute intraparenchymal hemorrhage. No evidence of mass lesion. No evidence of acute infa rction. There is mild periventricular and subcortical hypodensity probably related to small vessel is chemic disease. There is mild prominence of the sulci and ventricles related to cerebral atrophy. Int racranial calcified cerebral atherosclerosis is noted. No extra-axial collections. No mass effect or midline shift. The orbits and soft tissues are unremarkable. There is mild mucosal thickening of the paranasal sinuses. IMPRESSION: 1. No acute intracranial abnormality. 2. Age related findings. Reviewed, dictated and finalized at location F.
--- NOTE | ~2023-06-16 | CT_ITS ---
EXAMINATION: CT facial & cervical spine wo DATE: 06/16/2023 18:30 INDICATION: Head injury TECHNIQUE: Computed tomography (CT) of the maxillofacial region and cervical spine was performed with out intravenous contrast. The dose-length product (DLP) was 523.64 mGy-cm. Automated exposure control and iterative reconstruction technique were employed. COMPARISON: None FINDINGS: MAXILLOFACIAL CT: No facial fracture is identified. There is mild mucosal thickening of the paranasal sinuses. The soft tissues are unremarkable. The orbits and globes are normal. CERVICAL SPINE CT: There are 2 mm of anterolisthesis of C4 on C5. There is no fracture. The odontoid process is intact. There is severe loss of intervertebral disc space height at C6-7 and moderate loss of disc space heig ht at C5-6 and C7-T1. There is multilevel severe facet and uncovertebral joint osteoarthritis. There is mild emphysema of the visualized lung apices. IMPRESSION: 1. No facial fracture identified. 2. Severe cervical spondylosis without acute findings. Reviewed, dictated and finalized at location F.
[2023-06-16 17:55] VITALS: BP 143/73; PULSE 80; RESP 16; O2SAT 100
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
== END 2023-06-16 20:56 | disposition home or self-care (01) ==
LOC: ANHED 20:36
PROVIDERS: Emergency Provider Student in an Organized Health Care Education/Training Program; PCP Physician Assistant
DX: S61.012A Laceration without foreign body of left thumb without damage to nail, initial encounter (principal); V43.52XA Car driver injured in collision with other type car in traffic accident, initial encounter; Y92.488 Other paved roadways as the place of occurrence of the external cause
CPT/HCPCS: 70450; 70486; 72125; 99284

== ENCOUNTER → 2023-06-24 14:01 | Outpatient (CLI) | payer OTHER, SELFPAY ==
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
== END ==
PROVIDERS: PCP Physician Assistant; Visit Provider Physician Assistant
DX: S49.92XA Unspecified injury of left shoulder and upper arm, initial encounter (principal); M79.89 Other specified soft tissue disorders
CPT/HCPCS: 73030

== ENCOUNTER → 2023-10-26 18:19 | Outpatient (CLI) | payer OTHER, SELFPAY ==
--- NOTE | ~2023-10-26 | XR_ITS ---
EXAMINATION: XR hip LT 2V w AP pelvis DATE: 10/26/2023 18:47 INDICATION: Chronic left hip pain. TECHNIQUE: An anteroposterior view of the pelvis and 2 views on 3 radiographs of the left hip were ob tained. COMPARISON: None. FINDINGS: Bone alignment is normal. No fracture. There is mild lumbar spondylosis. There is mild oste oarthritis of the hips. IMPRESSION: 1. Mild osteoarthritis of the hips. Reviewed, dictated and finalized at location E. [employer]
== END ==
PROVIDERS: PCP Physician Assistant; Visit Provider Physician Assistant
DX: M16.0 Bilateral primary osteoarthritis of hip (principal); G89.29 Other chronic pain
CPT/HCPCS: 73502